=== PATIENT | male | born 1975 | race Caucasian/White ===

== ENCOUNTER 2024-06-05 17:47 | Emergency (ER) | payer OTHER ==
[2024-06-05 18:25] LABS: EOSINOPHILS ABSOLUTE AUTO 0.02 10^3/uL (0.10-0.30); EOSINOPHILS PERCENT AUTO 0.4 % (1.0-3.0); HEMATOCRIT 40.9 % (40.0-52.0); HEMOGLOBIN 13.8 g/dL (13.0-17.0); IMMATURE GRAN ABSOLUTE AUTO 0.01 10^3/uL (0.00-0.50); IMMATURE GRAN PERCENT AUTO 0.2 % (0.0-5.0); LYMPHOCYTES ABSOLUTE AUTO 1.18 10^3/uL (1.00-4.00); LYMPHOCYTES PERCENT AUTO 21.9 % (20.0-40.0); MEAN CORPUSCULAR HEMOGLOBIN 27.2 pg (27.0-31.0); MEAN CORPUSCULAR HGB CONC 33.7 g/dL (32.0-36.0); MEAN CORPUSCULAR VOLUME 80.5 fL (82.0-92.0); MEAN PLATELET VOLUME 9.6 fL (7.4-10.4); MONOCYTES ABSOLUTE AUTO 0.39 10^3/uL (0.10-0.80); MONOCYTES PERCENT AUTO 7.2 % (2.0-8.0); NEUTROPHILS ABSOLUTE AUTO 3.79 10^3/uL (2.50-7.00); NEUTROPHILS PERCENT AUTO 70.3 % (50.0-70.0); PLATELET COUNT,PLT 187 10^3/uL (150-400); RED BLOOD CELL COUNT 5.08 10^6/uL (4.50-6.00); WHITE BLOOD CELL COUNT,WBC 5.39 10^3/uL (5.00-10.00)
[2024-06-05] MEDS: Ondansetron 4 MG/2 ML SDV IVPUSH ONE (18:32)
[2024-06-05] MEDS: HYDROmorphone 1 MG/ML Syringe IVPUSH ONE (18:34)
[2024-06-05 18:46] LABS: ALBUMIN 3.43 g/dL (3.40-5.00); ANION GAP 10.3 mmol/L (5-15); BILIRUBIN TOTAL 2.4 mg/dL (0.2-1.0); CALCIUM 9.3 mg/dL (8.7-10.3); CARBON DIOXIDE,CO2 31.2 mmol/L (21.0-32.0); CREATININE 1.3 mg/dL (0.51-1.17); EST CRCL DRUG DOSING (CG) 67.96 mL/min; POTASSIUM,K 3.5 mmol/L (3.5-5.1); PROTEIN TOTAL,TP 9.5 g/dL (6.4-8.2)
[2024-06-05] MEDS: diphenhydrAMINE 50 MG/ML SDV IVPUSH ONE (19:25)
== END 2024-06-05 19:30 | disposition home or self-care (01) ==
LOC: KA.ED 17:47
DX: K81.9 Cholecystitis, unspecified (principal); Z79.899 Other long term (current) drug therapy; Z88.5 Allergy status to narcotic agent
CPT/HCPCS: 80053; 85025; 96374; 96375; 99284; J1170; J2405